=== PATIENT | female | born 1945 ===

== ENCOUNTER 2016-12-25 06:16 | Inpatient (IN) | payer MEDICARE, OTHER ==
[2016-12-22 09:50] VITALS: BMI 44.2
--- NOTE | 2016-12-25 06:57 | CP.PCM.HP ---
History of Present Illness - History of Present Illness History of Present Illness: Chief Complaint: left knee pain HPI: 71 y/o lady with hx of HTN, Hyperlipidemia, Osteoarthritis s/p Bilateral knee replacement came in for scheduled Revision TKR of the left knee. The patient has a long history of OA, she had Right TKR in 2008 and the right knee has not bothered her since. She had Left TKR in 2011 and she was fine for a few years until 2 years ago , she started having left knee pain w/c worsened the past few months. She had to start taking analgesics daily because of the pain and ambulation has been very difficult despite analgesics. She is unable to go up and down the stairs because of the pain and she lives in a home with 2 steps to get to her home and 13 steps to her bedroom. Because of the worsening pain, she went to see Dr Rock who did several imaging and she was advised revision surgery. Pre op testing done as outpatient by her PMD. Low cardiac risk. Dx with UTI ( Enterobacter) - sensitive to Cipro - took 4 out of 7 days supply of her PO Cipro Full Code Surrogate Decision maker : spouse Joe Present on Admission - Present on Admission Any Indicators Present on Admission: No Review of Systems - Review of Systems All systems: reviewed and no additional remarkable complaints except - Constitutional Constitutional: absent: Fever, Headache - EENT Eyes: absent: Change in Vision Ears: absent: Decreased Hearing, Ear Discharge, Dizziness Nose/Mouth/Throat: absent: Nasal Congestion, Nasal Discharge - Cardiovascular Cardiovascular: absent: Chest Pain, Chest Pain at Rest, Lightheadedness, Orthopnea, Palpitations, Paroxysmal Nocturnal Dyspnea, Pedal Edema - Respiratory Respiratory: absent: Cough, Dyspnea, Dyspnea on Exertion - Gastrointestinal Gastrointestinal: absent: Diarrhea, Nausea, Vomiting - Genitourinary Genitourinary: absent: Change in Urinary Stream, Difficulty Urinating, Dysuria, Hematuria - Musculoskeletal Musculoskeletal: Arthralgias, Limited Range of Motion. absent: Muscle Weakness Additional comments: left knee pain jett on ambulation, severe when going up stairs - Neurological Neurological: absent: Dizziness, Focal Weakness, Headaches, Sensory Deficit - Endocrine Endocrine: absent: Polydipsia, Polyphagia, Polyuria - Hematologic/Lymphatic Hematologic: absent: Easy Bleeding, Easy Bruising Past Patient History - Infectious Disease Hx of Infectious Diseases: None - Tetanus Immunizations Tetanus Immunization: Unknown - Past Medical History & Family History Past Medical History?: Yes Past Family History: Reviewed and not pertinent - Past Social History Smoking Status: Never Smoked Chewing Tobacco Use: No Cigar Use: No Occupation: retired Alcohol: None Drugs: Denies Home Situation {Lives}: With Family Domestic Violence: Negative - CARDIAC Hx Cardiac Disorders: Yes Hx Hypercholesterolemia: Yes Hx Hypertension: Yes - PULMONARY Hx Respiratory Disorders: No - NEUROLOGICAL Hx Neurological Disorder: No - HEENT Hx HEENT Problems: Yes Hx Cataracts: Yes - RENAL Hx Chronic Kidney Disease: No - ENDOCRINE/METABOLIC Hx Endocrine Disorders: No - HEMATOLOGICAL/ONCOLOGICAL Hx Blood Disorders: Yes Hx Hepatitis A: Yes - INTEGUMENTARY Hx Dermatological Problems: No - MUSCULOSKELETAL/RHEUMATOLOGICAL Hx Musculoskeletal Disorders: Yes Hx Arthritis: Yes Hx Osteoarthritis: Yes - GASTROINTESTINAL Hx Gastrointestinal Disorders: No - GENITOURINARY/GYNECOLOGICAL Hx Genitourinary Disorders: Yes Hx Urinary Tract Infection: Yes (STARTED CIPRO 500MG BID 12/21/16) - PSYCHIATRIC Hx Psychophysiologic Disorder: No - SURGICAL HISTORY Hx Surgeries: Yes Hx Appendectomy: Yes (AT AGE 5 YRS OLD) Hx Cataract Extraction: Yes (O.U) Hx Joint Replacement: Yes (RIGHT TKR 2008 , LEFT TKR 2011) Hx Tonsillectomy: Yes - ANESTHESIA Hx Anesthesia: Yes Hx Anesthesia Reactions: No Hx Malignant Hyperthermia: No Has any member of the family had a problem w/ anesthesia?: No Meds Allergies/Adverse Reactions: Allergies Allergy/AdvReac Type Severity Reaction Status Date / Time No Known Allergies Allergy Verified 12/22/16 09:50 Physical Exam - Constitutional Appears: Non-toxic, No Acute Distress - Head Exam Head Exam: ATRAUMATIC, NORMAL INSPECTION, NORMOCEPHALIC - Eye Exam Eye Exam: EOMI, Normal appearance Pupil Exam: NORMAL ACCOMODATION - ENT Exam ENT Exam: Mucous Membranes Dry, Normal External Ear Exam - Neck Exam Neck exam: Positive for: Full Rom. Negative for: Lymphadenopathy, Meningismus - Respiratory Exam Respiratory Exam: NORMAL BREATHING PATTERN. absent: Rales, Wheezes, Respiratory Distress - Cardiovascular Exam Cardiovascular Exam: REGULAR RHYTHM, +S1, +S2 - GI/Abdominal Exam GI & Abdominal Exam: Normal Bowel Sounds, Soft. absent: Tenderness - Extremities Exam Extremities exam: Positive for: normal capillary refill, pedal pulses present. Negative for: calf tenderness, pedal edema Additional comments: left knee pain on ROM - Back Exam Back exam: absent: CVA tenderness (L), CVA tenderness (R), paraspinal tenderness , vertebral tenderness Additional comments: old surgical scan - lumbar and thoracic - Neurological Exam Neurological exam: Alert, CN II-XII Intact, Oriented x3, Reflexes Normal - Psychiatric Exam Psychiatric exam: Normal Affect, Normal Mood - Skin Skin Exam: Dry, Intact, Normal Color, Warm Results - Vital Signs Recent Vital Signs: Last Vital Signs Temp 97.9 F 12/25/16 06:55 Pulse 93 H 12/25/16 06:55 Resp 20 12/25/16 06:55 BP 166/82 H 12/25/16 06:55 Pulse Ox 97 12/25/16 06:55 - Labs Labs: reviewed labs done as outpt - EKG Data EKG Interpreted by: Other EKG shows normal: Sinus rhythm Rate: Normal - Imaging and Cardiology Chest x-ray Status: Report reviewed by me Assessment & Plan (1) Primary osteoarthritis involving multiple joints Status: Chronic (2) S/P total knee replacement Status: Chronic (3) HTN (hypertension) Status: Chronic (4) Hyperlipidemia Status: Chronic (5) UTI (urinary tract infection) due to Enterococcus Status: Acute (6) DVT prophylaxis Status: Acute - Assessment and Plan (Free Text) Assessment: 71 y/o lady with hx of Degenerative Joint Dis s/p Bilateral TKR, HTN, Hyperlipidemia , came for scheduled Revision TKR of the left knee. The patient has been having severe left knee pain for the past few years worsening the past few months. (1) Primary osteoarthritis involving multiple joints Status: Chronic Hx of bilat knee OA s/p Bilat TKR ( right done in 2008 and left in 2011) and also with hx of chronic low back pain s/p Lumbar and thoracic spine surgeries. Pt was doing fine post TKR however 2 years ago started having left knee pain w/ c worsened the past few months- saw Dr Rock who did imaging and she was advised Revision of TKR (2) S/P total knee replacement bilat Status: Chronic Plan for Revision TKR of the left Preop eval done as outpt and pt has low cardiac risk Pain mgt PT/OT consult post op (3) HTN (hypertension) Status: Chronic cont Norvasc and Diovan (4) Hyperlipidemia Status: Chronic cont Lipitor (5) UTI (urinary tract infection) due to Enterococcus Status: Acute Urine c/s done as outpt : Enterobacter sensitive to Cipro- received 4 days of PO Cipro, did not take her dose this am, will give her dose as IV cipro 400mg x 1 dose on and she will cont PO Cipro x 3 more days (6) DVT prophylaxis Status: Acute will start post op Decision To Admit - Pt Status Changed To: Hospital Disposition Of: Inpatient - Admit Certification Admit to Inpatient:: After my assessment, the patient will require hospitalization for at least two midnights. This is because of the severity of symptoms shown, intensity of services needed, and/or the medical risk in this patient being treated as an outpatient. - . Bed Request Type: Med/Surg Admitting Physician: Mena Sanchez
[2016-12-25] MEDS ORDERED: Midazolam 2 MG/2 ML VIAL ONE (07:16)
[2016-12-25] MEDS ORDERED: Propofol 10 mg/ml Inj (20 ML) ONE (07:16)
[2016-12-25] MEDS ORDERED: Rocuronium 10 mg/ml (5 ml) ONE ×2 (07:17→11:54)
[2016-12-25] MEDS ORDERED: Succinylcholine 200 mg/10 ml Inj IV ONE (07:17)
[2016-12-25] MEDS ORDERED: Bacitracin Ointment 30 GM TUBE ONE (07:20)
[2016-12-25] MEDS ORDERED: Absorbable Gelatin Sponge Size 100 ONE (07:21)
[2016-12-25] MEDS ORDERED: Ciprofloxacin 400mg/200ml D5W 200 ML IVPB STA (07:21)
[2016-12-25] MEDS ORDERED: Thrombin Topical 5,000 IU Spray Kit ONE (07:21)
[2016-12-25] MEDS ORDERED: Bupivacaine 0.5% Inj(30mL) ONE (07:22)
[2016-12-25] MEDS ORDERED: Ropivacaine 0.5% 30ML IV ONE (07:46)
[2016-12-25] MEDS ORDERED: Ciprofloxacin 400mg/200ml D5W IVPB ONE (08:00)
[2016-12-25] MEDS ORDERED: Ciprofloxacin 400mg/200ml D5W 200 ML IVPB ONE (08:01)
[2016-12-25] MEDS ORDERED: Lactated Ringer's 1,000 ML IV ONE ×3 (09:00→13:19)
[2016-12-25] MEDS ORDERED: ePHEDrine 50 mg/ml Inj ONE (09:36)
[2016-12-25 10:49] LABS: FLUID TYPE SYNOVIAL FLUID
[2016-12-25] MEDS ORDERED: Metoprolol 1 mg/ml Inj IVP ONE (12:13)
[2016-12-25] MEDS ORDERED: Neostigmine Methylsulfate 2 MG/2 ML ML IV ONE (12:55)
[2016-12-25] MEDS ORDERED: Neostigmine Methylsulfate 3mg/3ml Syringe IV ONE (12:55)
[2016-12-25 13:01] LABS: SYNOVIAL FLUID TOTAL COUNT 100 (0-0)
--- NOTE | 2016-12-25 13:23 | PCM.SURG1 ---
Surgeon's Initial Post Op Note - Surgeon's Notes Surgeon: Shweta Lead Electrical Engineer: ELIU Mcgill/ assist- Type of Anesthesia: General Endo Anesthesia Administered By: spinal/general- Dr lew Pre-Operative Diagnosis: severely painful L TKR b Left knee. fx patella- L knee Operative Findings: as above Post-Operative Diagnosis: loosenedt TKR tibial and femoral Left knee. fx patella - L knee. synovitis anterior and posterior. posterior capsular contracture. lateral patella retinacular contracture. MORBID OBESITY Operation Performed: Revision L TKR. Open treatment of pateel fx with fragment excision and revision patella. removal all 3 TKR copmponents. anterior and posterior synovectomy. poosterior capsular release. lateral patella release Specimen/Specimens Removed: TKR componenets/synovium/bone Estimated Blood Loss: EBL {In ML}: 150 Blood Products Given: N/A Drains Used: Hemovac Post-Op Condition: Good Date of Surgery/Procedure: 12/25/16 Time of Surgery/Procedure: 10:25 (time in room/anaesthesia induction time 9:00 AM)
[2016-12-25] MEDS ORDERED: Naloxone 0.4 mg/ml Inj (Adult) IVP PRN (13:37)
[2016-12-25] MEDS ORDERED: DiphenhydrAMINE 50 mg/ml Inj IVP PRN (13:37)
--- NOTE | 2016-12-25 13:42 | PCM.ANESB2 ---
Popliteal Nerve Block - Popliteal Nerve Block Date of Procedure: 12/25/16 Procedure Performed: Popliteal Nerve Block Left - Procedure Popliteal Nerve Block: This procedure was explained to the patient that it is for post-operative pain management. Consent was obtained after a thorough discussion with the patient regarding the benefits and possible complications of local anesthetic block of the sciatic nerve at the popliteal level. The patient was brought to the operating room and standard monitors are applied. Time-out was held with the circulating nurse to confirm the correct surgery and the appropriate block. After applying oxygen by nasal cannula and administering IV Sedation, patient's operative leg was gently raised and supported and the groove in between the biceps femoris and vastus lateralis muscles was carefully palpated. The skin approximately 8cm above the popliteal crease was then marked. The ultrasound transducer was then applied to the posterior thigh approximately 8cm above the popliteal crease in the transverse plane and the sciatic nerve before its division was visualized lateral to the popliteal artery and in between the bicep femoris and semimembranosus/semitendinosus muscles. After identification, the lateral portion of the thigh was prepped with Betadine solution three times and Lidocaine 1% was injected subcutaneously for topical anesthesia. At this point, a # 21 gauge Stimuplex insulated 4 inch needle was inserted into pre-marked area and advanced in a perpendicular direction. The needle was inserted above the ultrasound transducer in-plane towards the sciatic nerve in a inqmtuf-zy-rhheil direction. Needle advancement was performed carefully under direct ultrasound visualization. Nerve stimulator was used and dorsiflexion of the __left___ foot was elicited at a current of __0.3___ MA. After repeated negative aspiration, __15___cc of __0.5___ % Ropivacaine was injected . Under ultrasound guidance the local anesthetics were observed tenting the epidural sheath and surrounding the roots of the sciatic nerve. The needle was removed intact and sterile dressing was applied. The patient tolerated the popliteal nerve block well with stable vital signs and was subsequently prepared for the surgery.
--- NOTE | 2016-12-25 13:43 | PCM.ANESB3 ---
Femoral Nerve Block - Femoral Nerve Block Date of Procedure: 12/25/16 Procedure Performed: Femoral Nerve Block Left - Procedure Femoral Nerve Block: The procedure was explained to the patient that it is for the post-operative pain management. Consent was obtained after a thorough discussion with the patient regarding the benefits and possible complications of local anesthetic block of the femoral nerve at the inguinal crease area. The patient was brought to the operating room and standard monitors were applied. Time-out was held with the circulating nurse to confirm the correct surgery and the appropriate block. After applying oxygen by nasal cannula and administering IV Sedation, patient was placed in supine position with fully extended lower extremities and the ___left groin exposed. The femoral artery was then carefully palpated. The ultrasound transducer was then applied to this area in the transverse plane and the femoral nerve was visualized lateral to the femoral artery and underneath the fascia iliaca. After thorough identification, the inguinal crease area was prepped with Betadine solution three times and 1 % Lidocaine was injected subcutaneously for topical anesthesia. At this point, a #22 gauge Stimuplex 2-inch needle was inserted immediately lateral to the femoral artery pulse at the inguinal crease and advanced perpendicularly. The needle was inserted to the ultrasound transducer in-plane towards the femoral nerve in a [id number] direction. Needle advancement was performed carefully under direct ultrasound visualization. Nerve stimulator was used and twitch of the quadriceps muscle was obtained at current of MA. After negative aspiration, _20___ cc of ___0.5____ % ___Ropivacaine __ was injected. Under ultrasound guidance the local anesthetics were observed spreading below fascia iliaca and around the femoral nerve. The needle was removed intact and sterile dressing was applied. The patient had stable vital signs, was conscious and in no apparent distress. The patient tolerated the femoral nerve block well with stable vital signs and was prepared for subsequent surgery.
--- NOTE | 2016-12-25 14:10 | RAD ---
Indication: Status post left TKR Comparison: None available Two views, left knee Findings: The patient is status post left knee total arthroplasty. Alignment appears satisfactory. Soft tissue swelling, drainage catheter, subcutaneous emphysema, and surgical corina compatible with recent postoperative history Impression: Status post left arthroplasty as above.
[2016-12-25] MEDS ORDERED: ceFAZolin 1 GM in Sodium Chloride 0.9% 100 ML IVPB SCH (17:00)
[2016-12-26 01:06] VITALS: RESP 20
[2016-12-26 06:42] LABS: HEMATOCRIT 32.5 % (34.0-47.0); MEAN CELL VOLUME 91.1 fl (81.0-99.0); MEAN CORPUSCULAR HEMOGLOBIN 29.9 pg (27.0-31.0); MEAN CORPUSCULAR HGB CONC 32.8 g/dL (33.0-37.0); WHITE BLOOD COUNT 13.4 K/uL (4.8-10.8)
[2016-12-26 06:53] LABS: BLOOD UREA NITROGEN 20 mg/dl (7-17); CALCIUM 9.5 mg/dL (8.4-10.2); CARBON DIOXIDE 22 mmol/L (22-30); CHLORIDE 106 mmol/L (98-107); GFR AFRICAN-AMERICAN > 60; GLUCOSE,RANDOM 149 mg/dL (65-105); POTASSIUM 3.8 MMOL/L (3.6-5.0); SODIUM 141 mmol/l (132-148)
--- NOTE | 2016-12-26 07:16 | CARD ---
APPROVED REPORT EKG Measurement Heart [id number] OR [id number] <Conclusion> Normal sinus rhythm Normal ECG
--- NOTE | 2016-12-26 12:20 | OP ---
PROCEDURE DATE: 12/25/2016 PREOPERATIVE DIAGNOSIS: Painful left total knee replacement arthroplasty. POSTOPERATIVE DIAGNOSES: 1. Loosened femoral and tibial components. 2. Fracture of the patella with loosened tibial component. 3. Severe synovitis both anterior and posterior compartments. 4. Posterior capsular contracture. 5. Lateral patellar retinacular contracture. 6. Postoperative diagnoses include morbid obesity. The patient has a body mass index of approximate ly 47. PROCEDURES: 1. Revision left total knee replacement arthroplasty. 2. Open treatment of a patellar fracture with fragment excision and revision patella. 3. Removal all 3 total knee components. 4. Anterior and posterior synovectomy. 5. Posterior capsular release. 6. Lateral patellar retinacular release. SURGEON: Arturo Rock MD. CHEMICAL EQUIPMENT REPAIRER: Karina Lutz, Certified Registered Nursing [employer]. ANESTHESIA: General endotracheal anesthesia. Spinal and general anesthesia administered by Dr. Hannah alvarenga. SPECIMENS REMOVED: Total knee components, synovium, and bone. BLOOD LOSS: Approximately 150 mL. BLOOD PRODUCTS GIVEN: None. DRAINS: One Hemovac. POSTOPERATIVE CONDITION: Stable. SECOND BOMBSIGHT SPECIALIST: Jae Vences. It should be noted that Karina Lutz's assistantship was essential to the completion of the procedure . OPERATIVE INDICATION: The patient is a 71-year-old woman who presents with severe left knee pain and restricted range of motion to my office. The patient had undergone successful replacement arthropla sty several years ago. The patient is morbidly obese and has stressed the components. The patient p resents with pain. Planar x-rays revealed no gross evidence of sepsis, but questionable tibial compo nent loosening. Pros, cons, risks, and benefits of revision knee replacement arthroplasty were discu ssed. The possibility of mechanical failure, infection, thromboembolic disease, secondary or tertiar y surgery was discussed. No prominences or guarantees were made. The possibility of leg length ineq uality, nerve injury, secondary and even tertiary surgery discussed. OPERATIVE PROCEDURE: After having obtained informed consent in the above fashion, after having ident ified side, site, and procedure, and a critical pause/timeout, after the satisfactory induction of th e anesthetic, the patient identified as the patient in the supine position with all bony prominences well-padded. The left lower extremity was prepped and free-draped in the usual fashion for lower ext remity surgery. The tourniquet had been applied, but is not yet inflated. After exsanguinating the limb using 6 inch Esmarch bandage, the tourniquet, which had been applied, is inflated to 350 mmHg. The incision is extended 2 fingerbreadths proximally, 2 fingerbreadths distally. The skin incision i s carried down through the skin and subcutaneous tissue, ____ of skin and subcutaneous tissue was rem carlos. Medial arthrotomy is accomplished. At this point in time, there is found to be evidence of a lateral patellar retinacular contracture, and to facilitate exposure of the knee, a lateral patellar retinacular release is accomplished. Hemostasis controlled with the Aquamantys. The patella is ever barbara. There is found evidence of patellar fracture. The patellar fracture is found to be loose and s eparated in fibrous tissue. With the eversion of the patella, the fragment was grasped. There were several fragments, and they are excised sharply using #15 blade to avoid injury to the extensor mecha nism. At this point in time, the knee is flexed. Medial arthrotomy having been accomplished, dissec tion is carried around posteromedially to the direct head of the semimembranosis tendon, and portion of the patellar ligament is elevated. The tibia is dislocated anteriorly. The tibial component is r emoved, and at this point in time, the tibial osteotomy is again corrected using the external tibial alignment guide. It should be noted that minimal bone is lost in removal of both the femoral and tib ial components. The tibial component is removed, and the tibia is removed from all extraneous cement, and the osteoto my is accomplished in neutral flexion, extension, anterior, posterior varus valgus planes. This havi ng been accomplished, attention is turned to the femur. The interval between the cement and the prosthesis is developed using an oscillating saw to be follow ed by the AcuDrive/Acutrak component. This having been accomplished, the femoral component is remove d. Remaining cement is removed. Synovial fluid is sent for analysis, and the analysis shows no evid ence of deep sepsis with 1 white cell per high-powered field and no bacteria. At this point, the pat yasemin is removed using an oscillating saw. The freehand patellar cut was accomplished. Retained poly ethylene tags were removed. This having been accomplished, attention is now turned to the femur. Reaming is accomplished. The distal cut is accomplished at the point preserving the joint line by ma rking the femoral component with a fixed distance prior to removal of the component. This having bee n accomplished, the component is removed. The canal is found. Sequential reaming is carried to 12 m m. The distal cut is accomplished at 2 degrees of valgus, and the distal cut is accomplished. Anter ior, posterior sizing is accomplished, and the notch cut and the 4-in-1 block is placed. Anterior an d posterior osteotomies were accomplished with a #4 femoral component with #3 tibial tray. The notch is cut as well, and at this point in time, a trialing is accomplished with the stem #3 femoral compo nent, and the stemmed #4 femoral component, and the stemmed #3 tibial component with 18 mm polyethyle ne. The position is found to be acceptable. ____ to rotation of the tibial side on the lateral aspe ct of the tibial condyle, mid malleolar axis, medial third of the tibial tuberosity. The posterior c apsule had been contracted. A careful posterior capsular release is accomplished. This having been accomplished, attention is turned to the femur and the tibia, and the lateral patellar retinacular re lease having been accomplished, a thorough anterior and posterior synovectomy, lateral patellar retin acular release, posterior capsule release having been accomplished, 35 mm patella was employed. Flex ion, extension, and balance found to be excellent. There is no evidence of instability. Patellar ba jennifer is excellent. At this point in time, the tibia, femur, and patella are prepared, and the #3 st emmed tibial component is employed after the #4 stemmed femoral component with augments on the distal femoral condyle and posterior condyle. Please refer to the chart. This having been accomplished, t he components are cemented, the patella is cemented. The balance is found to be excellent. Closure is in layers of #2 Quill, #1 Vicryl for the arthrotomy, followed by #2 Quill and Vicryl follo wed by corina for skin over an 1/8 inch, suction Hemovac drain. Segun Vargas compression dressing a nd knee immobilizer were applied. Postoperative x-rays revealed excellent positioning of the construct. Arturo Rock MD cc: [id number] TT: 12/26/2016 12:19:27 jn
--- NOTE | 2016-12-26 12:28 | CP.PCM.PN ---
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 no SOB no CP no abd pain Objective - Vital Signs/Intake and Output Vital Signs (last 24 hours): Temp Pulse Resp BP Pulse Ox 99.4 F 108 H 20 146/86 94 L 12/26/16 08:31 12/26/16 08:31 12/26/16 08:31 12/26/16 08:31 12/26/16 10:36 - Medications Medications: Current Medications Aspirin (Ecotrin) 81 mg PO BID [facility] Last Admin: 12/26/16 09:23 Dose: 81 mg Atorvastatin Calcium (Lipitor) 10 mg PO DAILY [facility] Last Admin: 12/26/16 09:23 Dose: 10 mg Ciprofloxacin (Cipro) 500 mg PO BID [facility] Stop: 12/28/16 21:01 Last Admin: 12/26/16 09:23 Dose: 500 mg Diphenhydramine HCl (Benadryl) 25 mg IVP Q6 PRN PRN Reason: Itching / Pruritus Docusate Sodium (Colace) 100 mg PO BID [facility] Last Admin: 12/26/16 09:30 Dose: 100 mg Ferrous Sulfate (Feosol) 325 mg PO BID [facility] Last Admin: 12/26/16 09:30 Dose: 325 mg Morphine Sulfate (Morphine) 2 mg IVP Q4 PRN PRN Reason: Pain, severe (8-10) Naloxone HCl (Narcan) 0.1 mg IVP Q2M PRN PRN Reason: Shortness of Breath Ondansetron HCl (Zofran Inj) 4 mg IVP Q8 PRN PRN Reason: Nausea/Vomiting Last Admin: 12/25/16 17:32 Dose: 4 mg Oxycodone/Acetaminophen (Percocet 5/325 Mg Tab) 1 tab PO Q4 PRN PRN Reason: Pain, moderate (4-7) Stop: 12/29/16 12:27 Valsartan (Diovan) 80 mg PO DAILY [facility] Last Admin: 12/26/16 09:22 Dose: 80 mg - Labs Labs: 12/26/16 06:15 12/26/16 06:15 - Constitutional Appears: No Acute Distress - Head Exam Head Exam: NORMAL INSPECTION, NORMOCEPHALIC - Eye Exam Eye Exam: EOMI, Normal appearance Pupil Exam: NORMAL ACCOMODATION - ENT Exam ENT Exam: Mucous Membranes Moist, Normal External Ear Exam - Neck Exam Neck Exam: Full ROM. absent: Meningismus - Respiratory Exam Respiratory Exam: NORMAL BREATHING PATTERN. absent: Respiratory Distress - Cardiovascular Exam Cardiovascular Exam: REGULAR RHYTHM, +S1, +S2 - GI/Abdominal Exam GI & Abdominal Exam: Soft, Normal Bowel Sounds. absent: Tenderness - Extremities Exam Extremities Exam: Normal Capillary Refill. absent: Calf Tenderness Additional comments: Left knee with dressing intact - Back Exam Back Exam: absent: CVA tenderness (L), CVA tenderness (R) - Neurological Exam Neurological Exam: Alert, Awake, CN II-XII Intact, Oriented x3 Neuro motor strength exam: Left Upper Extremity: 5, Right Upper Extremity: 5, Left Lower Extremity: 5, Right Lower Extremity: 5 - Psychiatric Exam Psychiatric exam: Normal Affect, Normal Mood - Skin Skin Exam: Dry, Normal Color, Warm Assessment and Plan (1) Primary osteoarthritis involving multiple joints Status: Chronic (2) S/P total knee replacement Status: Chronic (3) HTN (hypertension) Status: Chronic (4) Hyperlipidemia Status: Chronic (5) UTI (urinary tract infection) due to Enterococcus Status: Acute (6) DVT prophylaxis Status: Acute - Assessment and Plan (Free Text) Assessment: 71 y/o lady with hx of Degenerative Joint Dis s/p Bilateral TKR, HTN, Hyperlipidemia , came for scheduled Revision TKR of the left knee. The patient has been having severe left knee pain for the past few years worsening the past few months. (1) Primary osteoarthritis involving multiple joints Status: Chronic Hx of bilat knee OA s/p Bilat TKR ( right done in 2008 and left in 2011) and also with hx of chronic low back pain s/p Lumbar and thoracic spine surgeries. Pt was fine post TKR however 2 years ago started having left knee pain w/c worsened the past few months Ortho consulted , and pt underwent Revision TKR on the left knee (2) S/P Left Knee TKR Revision, History of bilat TKR Pt is doing well post op , some post op pain but managed by SETTER COLD ROLLING MACHINE Morphine Pain mgt: d/c SETTER COLD ROLLING MACHINE pump , start IV Morphine 2 mg for severe pain and Percocet for moderate pain PT/OT consulted (3) HTN (hypertension) Status: Chronic cont Diovan Hold Norvasc as ARON low normal (4) Hyperlipidemia Status: Chronic cont Lipitor (5) UTI (urinary tract infection) - diagnosed as outpt Status: Acute Urine c/s done as outpt : Enterobacter sensitive to Cipro cont PO Cipro x 2 more days to complete her treatment (6) DVT prophylaxis Status: Acute ASA 81 mg BID
[2016-12-26] MEDS: Oxycodone/Acetaminophen 5/325 mg Tab PO PRN ×3 (12:38→21:28)
[2016-12-27 07:02] LABS: HEMATOCRIT 29.2 % (34.0-47.0); MEAN CELL VOLUME 92.3 fl (81.0-99.0); MEAN CORPUSCULAR HGB CONC 32.5 g/dL (33.0-37.0); RED CELL DISTRIBUTION WIDTH 14.7 % (11.5-14.5); WHITE BLOOD COUNT 11.9 K/uL (4.8-10.8)
[2016-12-27 07:18] LABS: CALCIUM 9.2 mg/dL (8.4-10.2); POTASSIUM 3.8 MMOL/L (3.6-5.0)
[2016-12-27] MEDS: Oxycodone/Acetaminophen 5/325 mg Tab PO PRN ×3 (08:49→21:07)
[2016-12-27] MEDS ORDERED: Povidone Iodine Topical 10% Sol ONE (08:54)
--- NOTE | 2016-12-27 10:50 | CP.PCM.PN ---
Subjective - Date & Time of Evaluation Date of Evaluation: 12/27/16 Time of Evaluation: 10:45 - Subjective Subjective: Hospitalist Progress Note (Patient was seen and examined 10:45 AM 12/27/16 665-1 with present) 71 y/o lady with Hx of Degenerative Joint Disease/Bilateral TKR, HTN, and Hyperlipidemia, who came into the hospital for scheduled Revision of Left TKR. The patient has been having severe left knee pain for the past few years worsening the past few months. The Left Knee Revision occurred on 12/25/16 and she is currently awaiting MANUEL placement at [facility]. Currently upon FULL ROS patient states that she will have pain in the Left Knee that comes and goes that is controlled on Percocet 5/325 of which she states she has been using on average of 1 tablet every 12 hours. She also states that there has been NO bowel movement since this past Sunday. NO chest pain, NO palpitations, NO SOB/Cough/Wheezing, NO Soreness in the throat/Dysphagia/ Odynophagia, NO abdominal pain, NO n/v/d, NO burning/pain with urination, NO lightheadedness/dizziness, NO headaches, NO new changes in vision/eye pain, NO new changes in hearing/ear pain, NO paresthesias, NO edema HEENT: NCA, PERRLA, EOMI, NO lymphadenopathy, NO thyromegaly, NO Pharyngeal erythema/exudate, Oral Mucosa and Nasal Turbinates are moist Cardio: NS1 and NS2, NO M/R/G Respiratory: CTA B/L, NO R/R/W GI: BS x 4, Soft, Central Obesity, NO HSM, NO Guarding/Rebound Tenderness Ext: Pulses are strong and equal, Capillar Refill is 2 seconds, NO edema Neuro: CN II Through XII are grossly intact Assessment and Plan: (1) Primary osteoarthritis involving multiple joints Status: Chronic Hx of bilateral knee OA s/p Bilat TKR (right done in 2008 and left in 2011). She also has a hx of chronic low back pain s/p Lumbar and thoracic spine surgeries. Pt was doing fine after TKR. However 2 years ago she started having left knee pain that had worsened the past few months Ortho Dr. Rock was consulted and patient underwent Revision TKR on the left knee 12/25/16 (2) S/P Left Knee TKR Revision Pt is doing well post op Initially on LUMBER STRAIGHTENER Pump and then was started on Morphine 2 mg IV Q4H PRN for severe pain and Percocet 5/325 mg 1 tab PO Q4H PRN for moderate pain PT/OT consulted Left Knee Wound Culture 12/25/16 is negative to date (3) HTN (hypertension) Status: Chronic Diovan 80 mg PO 1x/day Norvasc was held secondary to low b/p (4) Hyperlipidemia Status: Chronic Lipitor 10 mg PO 1x/day (5) UTI (urinary tract infection) - diagnosed as outpatient Status: Acute Urine c/s done as outpt : Enterobacter sensitive to Cipro Continue Cipro 500 mg PO 2x/day through 12/28/16 (6) Prophylactic Measures Status: Acute ASA 81 mg BID Benadryl 25 mg IV Q6H PRN Pruritus Colace 100 mg PO 2x/day Feosol 325 mg PO 2x/day Narcan 0.1 mg IVP Q2M PRN SOB Zofran 4 mg IV Q8H PRN N/V Patient is awaiting MANUEL at [facility] Objective - Vital Signs/Intake and Output Vital Signs (last 24 hours): Temp Pulse Resp BP Pulse Ox 98 F 95 H 20 127/75 96 12/27/16 08:07 12/27/16 08:07 12/27/16 08:07 12/27/16 08:07 12/27/16 08:07 Intake and Output: 12/27/16 12/27/16 06:59 18:59 Output Total 100 Balance -100 - Medications Medications: Current Medications Aspirin (Ecotrin) 81 mg PO BID [facility] Last Admin: 12/27/16 08:50 Dose: 81 mg Atorvastatin Calcium (Lipitor) 10 mg PO DAILY [facility] Last Admin: 12/27/16 08:51 Dose: 10 mg Ciprofloxacin (Cipro) 500 mg PO BID [facility] Stop: 12/28/16 21:01 Last Admin: 12/27/16 08:50 Dose: 500 mg Diphenhydramine HCl (Benadryl) 25 mg IVP Q6 PRN PRN Reason: Itching / Pruritus Docusate Sodium (Colace) 100 mg PO BID [facility] Last Admin: 12/27/16 08:50 Dose: 100 mg Ferrous Sulfate (Feosol) 325 mg PO BID [facility] Last Admin: 12/27/16 08:50 Dose: 325 mg Morphine Sulfate (Morphine) 2 mg IVP Q4 PRN PRN Reason: Pain, severe (8-10) Naloxone HCl (Narcan) 0.1 mg IVP Q2M PRN PRN Reason: Shortness of Breath Ondansetron HCl (Zofran Inj) 4 mg IVP Q8 PRN PRN Reason: Nausea/Vomiting Last Admin: 12/25/16 17:32 Dose: 4 mg Oxycodone/Acetaminophen (Percocet 5/325 Mg Tab) 1 tab PO Q4 PRN PRN Reason: Pain, moderate (4-7) Stop: 12/29/16 12:27 Last Admin: 12/27/16 08:49 Dose: 1 tab Valsartan (Diovan) 80 mg PO DAILY [facility] Last Admin: 12/27/16 08:50 Dose: 80 mg - Labs Labs: 12/27/16 06:00 12/27/16 06:00
[2016-12-28 07:53] LABS: BASO % 0.1 % (0.0-2.0); EOS # 0.1 K/uL (0.0-0.7); HEMATOCRIT 26.7 % (34.0-47.0); LYMPH # 1.2 K/uL (1.0-4.3); LYMPH % 14.4 % (20.0-40.0); MEAN CELL VOLUME 92.5 fl (81.0-99.0); MEAN CORPUSCULAR HEMOGLOBIN 30.5 pg (27.0-31.0); MEAN PLATELET VOLUME 8.8 fl (7.2-11.7); MONO # 1.2 K/uL (0.0-0.8); MONO % 13.8 % (0.0-10.0); NEUT # 6.1 K/uL (1.8-7.0); NEUT % 70.7 % (50.0-75.0); RED CELL DISTRIBUTION WIDTH 14.3 % (11.5-14.5); WHITE BLOOD COUNT 8.6 K/uL (4.8-10.8)
[2016-12-28 08:27] VITALS: BP 137/80; PULSE 87; TEMP 99.7; O2SAT 96
--- NOTE | 2016-12-28 09:46 | CP.PCM.DIS ---
Provider - Provider Date of Admission: 12/25/16 13:44 Attending physician: Mena Sanchez MD Primary care physician: Dr. Ortiz Consults: Orthopedics Dr. Cadet PT/OT Time Spent in preparation of Discharge (in minutes): 40 Hospital Course - Lab Results Lab Results: Micro Results 12/25/16 10:30 Knee Left Fungal Culture - Preliminary 12/25/16 14:17 Knee - Left Gram Stain - Final 12/25/16 14:17 Knee - Left Wound Culture - Preliminary 12/25/16 14:17 Knee - Left Gram Stain - Final 12/25/16 14:17 Knee - Left Wound Culture - Preliminary 12/25/16 14:17 Knee - Left Gram Stain - Final 12/25/16 14:17 Knee - Left Wound Culture - Preliminary 12/25/16 14:17 Knee - Left Gram Stain - Final 12/25/16 14:17 Knee - Left Wound Culture - Preliminary 12/25/16 14:17 Knee - Left Gram Stain - Final 12/25/16 14:17 Knee - Left Wound Culture - Preliminary 12/25/16 14:17 Knee - Left Gram Stain - Final 12/25/16 14:17 Knee - Left Wound Culture - Preliminary 12/25/16 14:17 Knee - Left Gram Stain - Final 12/25/16 14:17 Knee - Left Wound Culture - Preliminary 12/25/16 10:40 Synovial Fluid Gram Stain - Final 12/25/16 10:40 Synovial Fluid Body Fluid Culture - Preliminary NO GROWTH AFTER 2 DAYS 12/25/16 10:30 Knee - Left Anaerobic Culture - Final NO ANAEROBES ISOLATED. 12/25/16 10:30 Other: Please Indicate Mycobacterial Culture - Preliminary Most Recent Lab Values WBC 8.6 K/uL (4.8-10.8) 12/28/16 06:20 RBC 2.89 Mil/uL (3.80-5.20) L 12/28/16 06:20 Hgb 8.8 g/dL (12.0-16.0) L 12/28/16 06:20 Hct 26.7 % (34.0-47.0) L 12/28/16 06:20 MCV 92.5 fl (81.0-99.0) 12/28/16 06:20 MCH 30.5 pg (27.0-31.0) 12/28/16 06:20 MCHC 33.0 g/dL (33.0-37.0) 12/28/16 06:20 RDW 14.3 % (11.5-14.5) 12/28/16 06:20 Plt Count 129 K/uL (130-400) L 12/28/16 06:20 MPV 8.8 fl (7.2-11.7) 12/28/16 06:20 Neut % (Auto) 70.7 % (50.0-75.0) 12/28/16 06:20 Lymph % (Auto) 14.4 % (20.0-40.0) L 12/28/16 06:20 Bonner % (Auto) 13.8 % (0.0-10.0) H 12/28/16 06:20 Eos % (Auto) 1.0 % (0.0-4.0) 12/28/16 06:20 Baso % (Auto) 0.1 % (0.0-2.0) 12/28/16 06:20 Neut # 6.1 K/uL (1.8-7.0) 12/28/16 06:20 Lymph # 1.2 K/uL (1.0-4.3) 12/28/16 06:20 Bonner # 1.2 K/uL (0.0-0.8) H 12/28/16 06:20 Eos # 0.1 K/uL (0.0-0.7) 12/28/16 06:20 Baso # 0.0 K/uL (0.0-0.2) 12/28/16 06:20 Sodium 134 mmol/l (132-148) 12/27/16 06:00 Potassium 3.8 MMOL/L (3.6-5.0) 12/27/16 06:00 Chloride 102 mmol/L (98-107) 12/27/16 06:00 Carbon Dioxide 25 mmol/L (22-30) 12/27/16 06:00 Anion Gap 11 (10-20) 12/27/16 06:00 BUN 24 mg/dl (7-17) H 12/27/16 06:00 Creatinine 1.1 mg/dL (0.7-1.2) 12/27/16 06:00 Est GFR ( Amer) 59 12/27/16 06:00 Est GFR (Non-Af Amer) 49 12/27/16 06:00 Random Glucose 164 mg/dL (65-105) H 12/27/16 06:00 Calcium 9.2 mg/dL (8.4-10.2) 12/27/16 06:00 Fluid Type Synovial fluid 12/25/16 10:30 Synovial WBC 238.0 /mm3 (0.0-150.0) H 12/25/16 10:30 Synovial RBC 564.0 /mm3 (0.0-0.0) H 12/25/16 10:30 Synovial Neutrophils 31.0 % (0-0) H 12/25/16 10:30 Synovial Lymphocytes 57.0 % (0-0) H 12/25/16 10:30 Synov Monos/Macrophage 12 % (0-0) H 12/25/16 10:30 Synovial Fluid Comment Yellow 12/25/16 10:30 Blood Type A POSITIVE 12/25/16 06:40 Blood Type Confirm A POSITIVE 12/25/16 07:11 Antibody Screen Negative 12/25/16 06:40 BBK History Checked No verified bt 12/25/16 06:40 - Hospital Course Hospital Course: Hospitalist Progress Note (Patient was seen and examined 9:30 AM 12/28/16 665-1) 71 y/o lady with Hx of Degenerative Joint Disease/Bilateral TKR, HTN, and Hyperlipidemia, who came into the hospital for scheduled Revision of Left TKR. The patient has been having severe left knee pain for the past few years worsening the past few months. The Left Knee Revision occurred on 12/25/16 and she has been receiving PT. She has been accepted to [facility] and will be transferred there later this afternoon Currently upon FULL ROS patient states that she will have pain in the Left Knee that comes and goes (usually when she bears weight with PT) that is controlled on Percocet 5/325 of which she states she has been using on average of 1 tablet every 12 hours. She still has not had a bowel movement since this past Sunday despite Colace (1 dose of Senokot has been ordered this morning). NO chest pain , NO palpitations, NO SOB/Cough/Wheezing, NO Soreness in the throat/Dysphagia/ Odynophagia, NO abdominal pain, NO n/v/d, NO burning/pain with urination, NO lightheadedness/dizziness, NO headaches, NO new changes in vision/eye pain, NO new changes in hearing/ear pain, NO paresthesias, NO edema HEENT: NCA, PERRLA, EOMI, NO lymphadenopathy, NO thyromegaly, NO Pharyngeal erythema/exudate, Oral Mucosa and Nasal Turbinates are moist Cardio: NS1 and NS2, NO M/R/G Respiratory: CTA B/L, NO R/R/W GI: BS x 4, Soft, Central Obesity, NO HSM, NO Guarding/Rebound Tenderness Ext: Pulses are strong and equal, Capillar Refill is 2 seconds, NO edema Neuro: CN II Through XII are grossly intact Assessment and Plan: (1) Primary osteoarthritis involving multiple joints Status: Chronic Hx of bilateral knee OA s/p Bilat TKR (right done in 2008 and left in 2011). She also has a hx of chronic low back pain s/p Lumbar and thoracic spine surgeries. Pt was doing fine after TKR. However 2 years ago she started having left knee pain that had worsened the past few months Ortho Dr. Rock was consulted and patient underwent Revision TKR on the left knee 12/25/16 (2) S/P Left Knee TKR Revision Pt is doing well post op Initially on BRANCH MANAGER Pump and then was started on Morphine 2 mg IV Q4H PRN for severe pain and Percocet 5/325 mg 1 tab PO Q4H PRN for moderate pain PT/OT consulted Left Knee Wound Culture 12/25/16 is negative to date (3) HTN (hypertension) Status: Chronic Diovan 80 mg PO 1x/day Norvasc was held secondary to low b/p (4) Hyperlipidemia Status: Chronic Lipitor 10 mg PO 1x/day (5) UTI (urinary tract infection) - diagnosed as outpatient Status: Acute Urine c/s done as outpt : Enterobacter sensitive to Cipro Continue Cipro 500 mg PO 2x/day through 12/28/16 (6) Prophylactic Measures Status: Acute ASA 81 mg BID Benadryl 25 mg IV Q6H PRN Pruritus Colace 100 mg PO 2x/day Feosol 325 mg PO 2x/day Narcan 0.1 mg IVP Q2M PRN SOB Zofran 4 mg IV Q8H PRN N/V Patient has been accepted to [facility]. Please continue the above treatment. Recommend Fleet Enema if she does not have a bowel movement after being given Senokot before her discharge to rehab. José Luis Rowan D.O. Discharge Exam - Head Exam Head Exam: NORMAL INSPECTION, NORMOCEPHALIC Discharge Plan - Follow Up Plan Condition: GOOD Disposition: HOME/ ROUTINE Instructions: Urinary Tract Infection in Women (DC), Urinary Tract Infection in Men (DC), Dysuria (GEN), Hypertension (DC), Hypertension (GEN)
[2016-12-28] MEDS: Oxycodone/Acetaminophen 5/325 mg Tab PO PRN (12:46)
== END 2016-12-28 15:00 | DRG 467 ==
LOC: H.OPSURG 06:16 → H.MEDSURG1 13:44
PROVIDERS: ADMIT Internal Medicine; ATTEND Internal Medicine
PROC: 0SND0ZZ Release Left Knee Joint, Open Approach (ICD-10-PCS; 2016-12-25)
PROC: 3E0T3BZ Introduction of Anesthetic Agent into Peripheral Nerves and Plexi, Percutaneous Approach (ICD-10-PCS; 2016-12-25)
PROC: 0SRD0J9 Replacement of Left Knee Joint with Synthetic Substitute, Cemented, Open Approach (ICD-10-PCS; principal; 2016-12-25 07:45)
PROC: 0SPD0JC Removal of Synthetic Substitute from Left Knee Joint, Patellar Surface, Open Approach (ICD-10-PCS; 2016-12-25 07:45)
PROC: 0SBD0ZZ Excision of Left Knee Joint, Open Approach (ICD-10-PCS; 2016-12-25 07:45)
DX: T84.84XA Pain due to internal orthopedic prosthetic devices, implants and grafts, initial encounter (principal); N39.0 Urinary tract infection, site not specified; T84.033A Mechanical loosening of internal left knee prosthetic joint, initial encounter; Z68.42 Body mass index [BMI] 45.0-49.9, adult; I10 Essential (primary) hypertension; E78.5 Hyperlipidemia, unspecified; B95.2 Enterococcus as the cause of diseases classified elsewhere; E66.01 Morbid (severe) obesity due to excess calories; M17.0 Bilateral primary osteoarthritis of knee; M65.9 Synovitis and tenosynovitis, unspecified; Y83.1 Surgical operation with implant of artificial internal device as the cause of abnormal reaction of the patient, or of later complication, without mention of misadventure at the time of the procedure